=== PATIENT | male | born 1970 | race Caucasian/White ===

== ENCOUNTER 2024-12-23 10:59 | Inpatient (IN) | payer OTHER, SELFPAY ==
[2024-12-01 11:48] LABS: Hematocrit 39.9 % (39.0-52.0); Hemoglobin 13.6 g/dL (13.0-18.0); Mean Corp Hgb Conc. 34.1 g/dL (33.0-37.0); Mean Corpuscular Volume 84.9 fL (80.0-94.0); Platelet Count 244 10^3/uL (130-400); Red Cell Dist. Width 13.3 % (11.5-14.5)
[2024-12-01 11:58] LABS: INR 0.87; PT 12.1 Sec (11.4-14.6)
[2024-12-01 11:59] LABS: APTT 28.9 Sec (23.4-35.0)
[2024-12-01 14:18] VITALS: BMI 27.1
[2024-12-01 15:48] LABS: ALT (SGPT) 37 U/L (0-50); AST (SGOT) 32 U/L (17-59); Albumin 4.8 g/dl (3.5-5.0); Alkaline Phosphatase 69 U/L (38-126); Blood Urea Nitrogen 21 mg/dl (9-20); Calcium 9.6 mg/dl (8.4-10.2); Carbon Dioxide 23 mmol/L (22-30); Chloride 110 mmol/L (98-107); Estimated Creatinine Clearance 82 ml/min; Glucose 87 mg/dl (70-99); Potassium 5.0 mmol/L (3.5-5.1); Sodium 142 mmol/L (135-145); Total Protein 7.2 g/dl (6.3-8.2); eGFR > 60.00
[2024-12-23] VITALS (10 sets, daily range): BP systolic 0–153; BP diastolic 54–76; BMI 27.3
[2024-12-23] MEDS: TYLENOL 1000 MG PO (11:16)
[2024-12-23] MEDS: HEPARIN 5000 UNITS SC (11:16)
[2024-12-23] MEDS: NEURONTIN 300 MG PO (11:16)
[2024-12-23] MEDS: NORMOSOL-R/PLASMALYTE-A 1000 IV (11:29)
[2024-12-23 16:47] LABS: Hematocrit 37.7 % (39.0-52.0); Hemoglobin 13.2 g/dL (13.0-18.0); Mean Corp Hgb Conc. 35.0 g/dL (33.0-37.0); Mean Corpuscular Volume 84.0 fL (80.0-94.0); Platelet Count 224 10^3/uL (130-400); Red Cell Dist. Width 13.8 % (11.5-14.5)
[2024-12-23 17:07] LABS: ALT (SGPT) 54 U/L (0-50); AST (SGOT) 52 U/L (17-59); Albumin 4.2 g/dl (3.5-5.0); Alkaline Phosphatase 83 U/L (38-126); Blood Urea Nitrogen 16 mg/dl (9-20); Calcium 9.1 mg/dl (8.4-10.2); Carbon Dioxide 24 mmol/L (22-30); Chloride 110 mmol/L (98-107); Estimated Creatinine Clearance 76 ml/min; Glucose 129 mg/dl (70-99); Potassium 4.7 mmol/L (3.5-5.1); Sodium 138 mmol/L (135-145); Total Protein 6.7 g/dl (6.3-8.2); eGFR > 60.00
--- NOTE | 2024-12-23 17:46 | OR.RPT ---
Operative Report
Operative Report
DATE OF OPERATION: December 23, 2024
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
POSTOPERATIVE DIAGNOSIS: Same
SURGEON: Jese Maharaj M.D.
OPERATION: Right Functional Neck Dissection Neck Dissection � 55700
Thyroidectomy Total - 10273
ANESTHESIA: GET
ESTIMATED BLOOD LOSS: 20 cc
DRAINS: Medium TRESSA drain
SPECIMEN: Right neck tissue levels 2, 3, 4, and 6
FINDINGS: Thyroid tumors and metastatic right cervical lymph nodes
COMPLICATIONS: None
PROCEDURE:
The patient was taken to the operating room and placed in the usual supine position. After adequate general endotracheal anesthesia was established, the patient�s neck was extended, prepped, and draped in the typical sterile fashion. A 6 cm
transcervical incision was made two fingerbreadths above the sternal notch. The skin incision was made with the #15 blade, which was taken through the skin into the subcutaneous tissue. The underlying platysma muscle was divided, and subplatysmal
flaps were created superiorly to the thyroid cartilage and inferiorly to the sternal notch. Strap muscles were identified and at the midline.
The right thyroid lobe was mobilized medially. During this process, the right middle thyroid vein and inferior thyroid artery were dissected and ligated with Ligasure. Next, the right superior pole was taken down by dissecting and transecting the
superior pole vessels with a Ligasure. The right thyroid lobe was mobilized medially. During this process, the right recurrent laryngeal nerve was identified and preserved throughout its entire course. No clear parathyroid glands were identified.
The left thyroid lobe was mobilized medially. During this process, the left middle thyroid vein and inferior thyroid artery were dissected and ligated with Ligasure. Next, the left superior pole was taken down by dissecting and transecting the
superior pole vessels with a Ligasure. The left thyroid lobe was mobilized medially. During this process, the left recurrent laryngeal nerve was identified and preserved throughout its entire course. The left superior and inferior parathyroid glands
were identified and preserved. The total thyroid was resected off the trachea and sent to the pathology department.
At this time, the right neck level 6 lymph node dissection was performed. The tissue between the right carotid artery to the trachea in the anterior mediastinum was carefully dissected. The previously identified right recurrent laryngeal nerve and
parathyroid glands were preserved. The tissue was removed and sent to the pathology department.
Next, the right levels 2, 3, and 4 neck dissection was performed by extending the incision laterally and superior to the mastoid process, in a hockey stick fashion. The head was turned to the left. A hockey stick incision was made from the mastoid
process to the lower anterior neck. The skin incision was made with the #15 blade, which was taken through the skin into the subcutaneous tissue. The underlying platysma muscle was divided, and subplatysmal flaps were created superiorly to the
mandible and inferiorly to the clavicle. The sternocleidomastoid muscle into the sternum and the clavicle insertion to the angle of the mandible was dissected from its surrounding fascia and areolar tissue. During this process, the greater auricular
nerve was dissected and preserved.
The dissection of the sternocleidomastoid muscle began with a longitudinal incision over the fascia along the entire length of the muscle. The external jugular vein was transected close to the posterior of the sternocleidomastoid muscle. The vein
was then included in the specimen and dissected forward with the fascia border of the sternocleidomastoid muscle. The dissection reached the anterior border and the posterior aspect of the sternocleidomastoid muscle. At this time, the spinal
accessory nerve was identified below the upper half of the sternocleidomastoid muscle, which was dissected and preserved throughout its course.
The fascia of the digastric triangle is dissected downward, taking care to stay below the marginal mandibular nerve. The sternocleidomastoid is dissected off the deep layer of the investing fascia and retracted posteriorly. The fascia and nodes of
level II are dissected from the mastoid downward, exposing the internal jugular vein at the skull base, and the spinal accessory nerve entering the upper part of the sternocleidomastoid. The lymph nodes around and behind the spinal accessory nerve
in level IIB were carefully dissected and swept inferiorly. Also, the submandibular gland and hypoglossal nerve were identified and preserved. The dissection is completed by stripping the carotid sheath from the anterior surfaces of the internal
jugular vein and carotid artery and completing the dissection anteriorly to the edge of the strap muscles. The vagus and phrenic nerves were identified and preserved.
A small TRESSA drain was left in the lateral neck through a separate inferior and lateral incision, which was anchored to the skin using a #3-0 Nylon. After obtaining adequate hemostasis, the strap muscle was approximated with #3-0 Vicryl in a running
fashion, and the platysma muscles were reapproximated with #3-0 Vicryl in an interrupted fashion, and the skin was approximated with #4-0 Monocryl in a running subcuticular fashion. Steri-strips and sterile dressings were placed. The patient
tolerated the procedure well. The final instrument, needle, and sponge counts were correct.
[2024-12-23] MEDS: D5/0.9% SODIUM CHLORIDE 1000 IV (18:29)
--- NOTE | 2024-12-23 19:02 | PTCARENOTE ---
Patient admitted from PACU post throidectomy with modified neck resection.The patient is alert and oriented.He rates his pain at a 2-3 out of 10.Vital signs are stable.The anterior neck dressing is intact without drainage.The patient is in his bed
with the call dhaliwal in place.
--- NOTE | 2024-12-23 20:00 | PTCARENOTE ---
Resumed care of pt sitting up in bed eating dinner. Pt s/p total thyroidectomy with modified neck dissection, right neck TRESSA drain in place, dressing intact. Pt reports some tenderness, and sore throat, with stiff feeling neck. pt reports pain at
tolerable level at this time. Pt able to eat without difficulty. POX 96% on Ra. lungs clear. + bowel, round abd. Palpable peripheral pulses present. Knee high seq in place. Left hand int infusing D5NSS@75ml/hr. Pt able to ambulate to bathroom and
voiding without difficulty. Pt denies any complaints at this time. Call dhaliwal in reach. Will continue to monitor.
[2024-12-23] MEDS: COREG 3.125 MG PO (21:20)
[2024-12-23] MEDS: TYLENOL 650 MG PO (21:20)
[2024-12-23] MEDS: COLACE 100 MG PO (21:20)
[2024-12-23] MEDS: TYLENOL PO (23:26)
[2024-12-24] MEDS: TYLENOL PO ×3 (03:00→15:49)
[2024-12-24 03:20] VITALS: BP 118/67
[2024-12-24 06:00] VITALS: BMI 27.2
[2024-12-24 06:23] LABS: Hematocrit 34.3 % (39.0-52.0); Hemoglobin 11.8 g/dL (13.0-18.0); Mean Corp Hgb Conc. 34.4 g/dL (33.0-37.0); Mean Corpuscular Volume 85.3 fL (80.0-94.0); Platelet Count 205 10^3/uL (130-400); Red Cell Dist. Width 13.8 % (11.5-14.5)
[2024-12-24 06:47] LABS: ALT (SGPT) 68 U/L (0-50); AST (SGOT) 68 U/L (17-59); Albumin 3.9 g/dl (3.5-5.0); Alkaline Phosphatase 63 U/L (38-126); Blood Urea Nitrogen 19 mg/dl (9-20); Calcium 8.7 mg/dl (8.4-10.2); Carbon Dioxide 24 mmol/L (22-30); Chloride 111 mmol/L (98-107); Estimated Creatinine Clearance 76 ml/min; Glucose 150 mg/dl (70-99); Potassium 4.6 mmol/L (3.5-5.1); Sodium 137 mmol/L (135-145); Total Protein 6.1 g/dl (6.3-8.2); eGFR > 60.00
[2024-12-24 07:40] VITALS: BP 142/70
[2024-12-24] MEDS: D5/0.9% SODIUM CHLORIDE 1000 IV (08:17)
[2024-12-24] MEDS: NORVASC 10 MG PO (08:18)
[2024-12-24] MEDS: ZESTRIL 20 MG PO (08:18)
[2024-12-24] MEDS: COLACE 100 MG PO (08:18)
[2024-12-24] MEDS: COREG 3.125 MG PO (08:18)
[2024-12-24] MEDS: TYLENOL 650 MG PO (08:19)
--- NOTE | 2024-12-24 10:51 | CM ---
CM reviewed chart, patient seen bedside, initial assessment completed. Patient resides with his in a multiple story home, three steps to enter, bedroom on first floor. Patient is independent with ADLs/IADLs, no DME, denies VN/SNF history.
Patient denies PCP- will provide list. Patient confirms [facility], confirms prescription coverage. Patient with TRESSA drain, watch for VN needs upon discharge. CM will continue to follow for all discharge planning needs.
Plan; home with , watch for VN needs
[2024-12-24 11:45] VITALS: BP 130/75
--- NOTE | 2024-12-24 15:46 | W.DS.TRANS ---
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
-
Discharge Instructions:
Sleep Apnea Risk Intermediate
Discharge Diagnosis/Procedures Thyroid cancer
Diet Regular,As tolerated
Activity As tolerated
Driving Restrictions No driving for 1 week
Bathing Restrictions OK to Shower
Instructions:
Stand-Alone Forms:
Changes to Home Medications: Yes
Discharge Medications:
DC Medications w/original date entered in [facility]
amlodipine 10 mg tablet 10 mg PO DAILY Blood Pressure 12/05/24
carvedilol 3.125 mg tablet (Coreg) 3.125 mg PO BID Blood Pressure 12/05/24
lisinopril 20 mg tablet 20 mg PO DAILY Blood Pressure 12/05/24
Home Medication Changes
Pending Results: Yes
[2024-12-24 15:51] VITALS: BP 123/62
== END 2024-12-24 16:05 | disposition home or self-care (01) | DRG 627 ==
LOC: 2 SOUTH 10:59
PROVIDERS: ADMITTING PHYSICIAN Surgery
PROC: 0GTK0ZZ Resection of Thyroid Gland, Open Approach (ICD-10-PCS; 2024-12-23)
PROC: 07T10ZZ Resection of Right Neck Lymphatic, Open Approach (ICD-10-PCS; 2024-12-23)
DX: C73 Malignant neoplasm of thyroid gland (principal); E04.2 Nontoxic multinodular goiter; I10 Essential (primary) hypertension
CPT/HCPCS: 36415; 80053; 85027; 85610; 85730; 88305; 88307; 93005; C1729; C1776; C9250

== ENCOUNTER 2025-02-06 06:27 | Outpatient (RCR) | payer OTHER, SELFPAY | END 2025-02-06 23:59 | disposition home or self-care (01) | LOC: RPT 06:27 | PROVIDERS: ATTENDING PHYSICIAN Surgery | DX: C73 Malignant neoplasm of thyroid gland (principal); C77.0 Secondary and unspecified malignant neoplasm of lymph nodes of head, face and neck; Z73.6 Limitation of activities due to disability; M62.81 Muscle weakness (generalized); R29.3 Abnormal posture; L90.5 Scar conditions and fibrosis of skin; M25.511 Pain in right shoulder; Z98.890 Other specified postprocedural states | CPT/HCPCS: 97110; 97112; 97140; 97162; 97530 ==

== ENCOUNTER 2025-03-04 15:51 | Outpatient (RCR) | payer OTHER, SELFPAY | END 2025-03-04 23:59 | disposition home or self-care (01) | LOC: RPT 15:51 | PROVIDERS: ATTENDING PHYSICIAN Surgery | DX: C73 Malignant neoplasm of thyroid gland (principal); C77.0 Secondary and unspecified malignant neoplasm of lymph nodes of head, face and neck; Z73.6 Limitation of activities due to disability; M62.81 Muscle weakness (generalized); R29.3 Abnormal posture; L90.5 Scar conditions and fibrosis of skin; M25.511 Pain in right shoulder; Z98.890 Other specified postprocedural states | CPT/HCPCS: 97014; 97112; 97140; 97530 ==

== ENCOUNTER 2025-04-01 09:46 | Outpatient (RCR) | payer OTHER, SELFPAY | END 2025-04-01 23:59 | disposition home or self-care (01) | LOC: RPT 09:46 | PROVIDERS: ATTENDING PHYSICIAN Surgery | DX: C73 Malignant neoplasm of thyroid gland (principal); C77.0 Secondary and unspecified malignant neoplasm of lymph nodes of head, face and neck; Z73.6 Limitation of activities due to disability; M62.81 Muscle weakness (generalized); R29.3 Abnormal posture; L90.5 Scar conditions and fibrosis of skin; M25.511 Pain in right shoulder; Z98.890 Other specified postprocedural states | CPT/HCPCS: 97014; 97110; 97112; 97140 ==

== ENCOUNTER 2025-04-29 12:07 | Outpatient (RCR) | payer OTHER, SELFPAY | END 2025-04-29 23:59 | disposition home or self-care (01) | LOC: RPT 12:07 | PROVIDERS: ATTENDING PHYSICIAN Surgery | DX: C73 Malignant neoplasm of thyroid gland (principal); Z73.6 Limitation of activities due to disability; R29.3 Abnormal posture; M62.81 Muscle weakness (generalized); L90.5 Scar conditions and fibrosis of skin; M25.511 Pain in right shoulder; C77.0 Secondary and unspecified malignant neoplasm of lymph nodes of head, face and neck; Z98.890 Other specified postprocedural states | CPT/HCPCS: 97014; 97110; 97112; 97140; 97530 ==

== ENCOUNTER 2025-06-10 12:45 | Outpatient (RCR) | payer OTHER, SELFPAY | END 2025-06-10 23:59 | disposition home or self-care (01) | LOC: RPT 12:45 | PROVIDERS: ATTENDING PHYSICIAN Surgery | DX: C73 Malignant neoplasm of thyroid gland (principal); Z73.6 Limitation of activities due to disability; M62.81 Muscle weakness (generalized); R29.3 Abnormal posture; L90.5 Scar conditions and fibrosis of skin; M25.511 Pain in right shoulder; C77.0 Secondary and unspecified malignant neoplasm of lymph nodes of head, face and neck; Z98.890 Other specified postprocedural states | CPT/HCPCS: 97014; 97110; 97112; 97140; 97530 ==